=== PATIENT | male | born 1995 | race Caucasian/White ===

== ENCOUNTER 2017-08-15 01:21 | Emergency (ER) | payer OTHER ==
--- NOTE | 2017-08-15 03:09 | EDPHY ---
H & P HPI/ROS: Naveen Rivas HPI CHIEF COMPLAINT slip on ice, right eyebrow laceration HISTORY OF PRESENT ILLNESS this patient very pleasant 22-year-old male, presents emergency after states that he slipped and fell on eye sustaining a right eyebrow laceration right forehead hematoma. He denies LOC. He denies being assaulted. He states he slipped on some ice and fell on his head. He denies any other areas of injury. He does report to me that he had 8-10 beers to drink tonight. He arrived by private vehicle. He does smell of alcohol. He denies any other areas of trauma. Past Medical History: Denies medical history Past Surgical History: Denies surgical history Social History: Denies drugs alcohol tobacco daily but drank a large amount of alcohol this evening. 8 to 10 beers Family History: Noncontributory ROS REVIEW OF SYSTEMS: A comprehensive 10 point review of systems is otherwise negative aside from elements mentioned in the history of present illness. Exam Constitutional triage nursing summary reviewed, vital signs reviewed, awake/ alert. Eyes normal conjunctivae and sclera, EOMI, PERRLA. HENT head/neck: Right eyebrow there is a vertical 4 cm laceration present. Underlying hematoma. Additionally right forehead there is a hematoma present. Cervical spine is nontender. No step offs. normal inspection, atraumatic, moist mucus membranes, no epistaxis, neck supple/ no meningismus, no raccoon eyes. Respiratory clear to auscultation bilaterally, normal breath sounds, no respiratory distress, no wheezing. Cardiovascular rate normal, regular rhythm, no murmur, no edema, distal pulses normal. Gastrointestinal soft, non-tender, no rebound, no guarding, normal bowel sounds, no distension, no pulsatile mass. Genitourinary no CVA tenderness. Musculoskeletal no midline vertebral tenderness, full range of motion, no calf swelling, no tenderness of extremities, no meningismus, good pulses, neurovascularly intact. Skin pink, warm, & dry, no rash, skin atraumatic. Neurologic awake, alert and oriented x 3, AAOx3, moves all 4 extremities equally, motor intact, sensory intact, CN II-XII intact, normal cerebellar, normal vision, normal speech. Psychiatric normal mood/affect. Heme/Lymph/Immune no lymphadenopathy. Differential Diagnosis: Head injury, intracranial bleed, sdh, edh, hematoma, face lac Medical Decision Making: CT head without contrast for trauma in the setting of significant head injury with a laceration fall with alcohol intoxication and then the patient need his laceration repaired copiously irrigated. Cleaned. Re-evaluation: Laceration Repair Procedure: Verbal Consent was obtained, Under sterile conditions, The patient had lidocaine with epinephrine used approximately 5ccs to local anesthetize the Right Eyebrow 4CM vertical Laceration. The wound was copiously irrigated with sterile fluid, the wound was explored for foreign bodies there were none visualized, the wound was explored with a sterile glove to the base. There are no deep structures involved, including no arterial injury. FOUR 6.O Prolene interrupted Sutures were placed in this patient's laceration. He had good close approximation of the wound edges. He Tolerated this well. Patient tolerate his laceration repair well. He understands he needs to have sutures out 7 days. Return precautions discussed. CT scan head without contrast negative for acute traumatic injury. No brain bleed or skull fracture. There is a very small chip fracture the cortical rim of the right orbit. Unclear if this is acute or not. Updated patient about this. Updated patient about laceration. Understands have sutures removed in 7 days. Final diagnosis fall, closed head injury, forehead hematoma, right eyebrow laceration, chip fracture Source: Patient Departure - Departure Disposition: Home, Routine, Self-Care Clinical Impression: Facial laceration Qualifiers: Encounter type: initial encounter Qualified Code(s): S01.81XA - Laceration without foreign body of other part of head, initial encounter Condition: Good Instructions: Laceration (ED), Care For Your Stitches (ED) Additional Instructions: 1. Sutures to be removed in 7 days.
[2017-08-15 03:50] VITALS: BP 159/104; PULSE 124; RESP 16; TEMP 98.4; O2SAT 96
== END 2017-08-15 02:39 | disposition home or self-care (01) ==
PROC: 0HQ1XZZ Repair Face Skin, External Approach (ICD-10-PCS; principal; 2017-08-15)
DX: S01.111A Laceration without foreign body of right eyelid and periocular area, initial encounter (principal); W00.0XXA Fall on same level due to ice and snow, initial encounter